=== PATIENT | male | born 1965 | race Caucasian/White ===

== ENCOUNTER 2024-05-21 08:35 | Outpatient (CLI) | payer OTHER, SELFPAY ==
--- NOTE | ~2024-05-21 | XR_ITS ---
EXAMINATION: XR wrist RT min 3V, XR hand RT min 3V DATE: 05/21/2024 08:45 INDICATION: 3 months of nontraumatic right hand and wrist pain TECHNIQUE: 1. Posteroanterior, ulnar deviation, oblique, and lateral views of the right wrist were obtained. 2. Dorsal palmar, oblique and lateral views of the right hand were obtained. COMPARISON: None. FINDINGS: Alignment of the right hand and wrist is normal. No fracture identified. Mild osteoarthritis at the triscaphe, first and second metacarpophalangeal and first interphalangeal and third distal interphala ngeal joints. No erosions to suggest inflammatory arthritis. No focal soft tissue swelling. IMPRESSION: 1. Mild polyarticular osteoarthritis at the right hand. Reviewed, dictated and finalized at location B. IMPRESSION: 1. Mild polyarticular osteoarthritis at the right hand.
== END 2024-05-21 08:36 | disposition home or self-care (01) ==
LOC: MICIMG 08:37
PROVIDERS: PCP Pain Medicine Pain Medicine; Visit Provider Pain Medicine Pain Medicine
DX: M19.041 Primary osteoarthritis, right hand (principal)
CPT/HCPCS: 73110; 73130